=== PATIENT | male | born 1955 ===

== ENCOUNTER 2021-06-06 17:40 | Observation (INO) | payer MEDICARE ==
[2021-06-06] MEDS ORDERED: Lidocaine 1% w/Epinephrine 1:100K 20 ML VIAL ONE (18:34)
[2021-06-06] MEDS ORDERED: Bupivacaine 0.25% HCL 30 ML VIAL ONE (18:34)
[2021-06-06] MEDS ORDERED: Dextrose 50% Abboject 50 ML SYRINGE ONE (18:50)
[2021-06-06] MEDS ORDERED: Fentanyl 100 MCG/2 ML VIAL ONE (19:16)
[2021-06-06] MEDS ORDERED: Lidocaine 1% PF 5 ML VIAL ONE (19:27)
[2021-06-06] MEDS ORDERED: Glycopyrrolate 0.2 MG/ML 5 ML SYRINGE ONE (19:27)
[2021-06-06] MEDS ORDERED: Rocuronium Bromide 10 MG/ML (10ML VIAL) ONE (19:27)
[2021-06-06] MEDS ORDERED: PROPOFOL 200 MG/20 ML VIAL ONE (19:27)
[2021-06-06] MEDS ORDERED: Ondansetron PF 4 MG/2 ML Vial ONE (19:27)
[2021-06-06] MEDS ORDERED: Dexamethasone 4 mg/ml Vial ONE (20:34)
[2021-06-06] MEDS ORDERED: Midazolam HCl 2 mg/2 ml Vial ONE (20:35)
[2021-06-06] MEDS ORDERED: Promethazine HCl 25 MG/ML VIAL IM PRN ×2 (20:50→22:23)
[2021-06-06] MEDS ORDERED: Ondansetron HCl/PF 4 MG/2 ML Vial IVP PRN (20:50)
[2021-06-06] MEDS ORDERED: Morphine Sulfate 2 MG/ML SYRINGE SLOW IVP PRN (20:50)
[2021-06-06] MEDS ORDERED: PACU-Morphine 4MG/ML VIAL SLOW IVP PRN (20:50)
[2021-06-06] MEDS ORDERED: HYDROmorphone 2 MG/ML VIAL SLOW IVP PRN (20:50)
[2021-06-06] MEDS ORDERED: Promethazine HCl 25 MG/ML VIAL IVPB PRN (20:50)
[2021-06-06] MEDS ORDERED: Dextrose 50% Abboject 50 ML SYRINGE SLOW IVP PRN (22:23)
[2021-06-06] MEDS ORDERED: hydrALAZINE 20 MG/ML VIAL SLOW IVP PRN (22:23)
[2021-06-06] MEDS ORDERED: Morphine 4 MG/ML VIAL SLOW IVP PRN ×2 (22:23→23:00)
[2021-06-06] MEDS ORDERED: Ondansetron PF 4 MG/2 ML Vial IVP PRN (22:23)
[2021-06-06] MEDS ORDERED: Dextrose 5% in Water 1,000 ML IV PRN (22:23)
[2021-06-06] MEDS ORDERED: HYDROcodone/Acetaminophen 7.5/325 mg Tablet PO PRN (22:23)
[2021-06-06] MEDS ORDERED: Morphine 2 MG/ML VIAL SLOW IVP PRN (22:23)
[2021-06-06] MEDS ORDERED: Famotidine/PF 20 mg/2ml Vial SLOW IVP SCH ×2 (23:00→23:45)
[2021-06-06 23:09] VITALS: BMI 33.0
[2021-06-06] MEDS ORDERED: Piperacillin/Tazobactam 3.375 GM in Sodium Chloride 0.9% 100 ML IVPB SCH (23:45)
[2021-06-07] MEDS: Lactated Ringer's 1,000 ML IV SCH ×2 (00:36→10:00)
[2021-06-07] MEDS ORDERED: Piperacillin/Tazobactam 3.375 GM in Sodium Chloride 0.9% 100 ML IVPB SCH (06:00)
[2021-06-07] MEDS: HumaLOG 300 UNITS/3 ML VIAL SC PRN ×2 (06:33→11:55)
[2021-06-07 07:09] LABS: #Lymphocytes 0.7 thou/uL (1.20-3.40); #Monocytes 0.2 thou/uL (0.11-0.59); #Neutrophils 7.2 thou/uL (1.40-6.50); %Basophils 0.2 % (0.0-1.0); %Eosinophils 0.1 % (0.0-10.0); %Lymphocytes 9.1 % (21.0-51.0); %Monocytes 2.7 % (0.0-10.0); Hemoglobin 12.4 g/dL (14.0-18.0); Mean Corpuscular HGB CONC 33.6 g/dL (32.0-36.0); Mean Corpuscular Hemoglobin 30.4 pg (27.0-31.0); Mean Corpuscular Volume 90.5 fL (78.0-98.0); Mean Platelet Volume 7.6 fL (7.4-10.4); Platelet Count 229 thou/uL (130-400); RBC Distribution Width 12.2 % (11.5-14.5); Red Blood Cell (RBC) Count 4.07 mill/uL (4.70-6.10); White Blood Cell (WBC) Count 8.2 thou/uL (4.8-10.8)
[2021-06-07 07:33] LABS: Anion Gap 13 mmol/L (10-20); Calcium 9.2 mg/dL (7.8-10.44); Carbon Dioxide 22 mmol/L (23-31); Chloride 106 mmol/L (98-107); Glucose 168 mg/dL (80-115); Potassium 4.1 mmol/L (3.5-5.1); Sodium 137 mmol/L (136-145)
[2021-06-07 07:36] LABS: Calc. Creatinine Clearance 89 mL/min (70-130)
[2021-06-07 07:37] LABS: BUN (Urea Nitrogen) 19 mg/dL (8.4-25.7)
[2021-06-07] MEDS ORDERED: Famotidine 20 MG TAB PO SCH (09:00)
[2021-06-07] MEDS ORDERED: FLU VACC QS2021-22(65YR UP)/PF 240 MCG/0.7 ML SYRINGE IM ONE (09:00)
[2021-06-07] MEDS ORDERED: Famotidine/PF 20 mg/2ml Vial SLOW IVP SCH (09:00)
[2021-06-07 09:24] VITALS: BP 131/78; TEMP 98.1
[2021-06-08] MEDS ORDERED: Famotidine/PF 20 mg/2ml Vial SLOW IVP SCH (09:00)
== END 2021-06-07 12:58 | disposition home or self-care (01) ==
LOC: SDC/OP 17:40 → T4-B 19:44
PROVIDERS: ADMIT Surgery; ATTEND Surgery
PROC: 0DTJ4ZZ Resection of Appendix, Percutaneous Endoscopic Approach (ICD-10-PCS; principal; 2021-06-06)
DX: K35.80 Unspecified acute appendicitis (principal); J18.9 Pneumonia, unspecified organism; E78.5 Hyperlipidemia, unspecified; I12.9 Hypertensive chronic kidney disease with stage 1 through stage 4 chronic kidney disease, or unspecified chronic kidney disease; E11.22 Type 2 diabetes mellitus with diabetic chronic kidney disease; N18.9 Chronic kidney disease, unspecified; Z79.84 Long term (current) use of oral hypoglycemic drugs; Z79.4 Long term (current) use of insulin
CPT/HCPCS: 44970; 80048; 82962 ×2; 85025; 90662; 90732; 93005; G0008; G0009; 36415; 36416; 88304; 90471; 93010; J1100; J1815; J2250; J2270; J2405; J2543; J2704; J3010; J3490; J7120; J7620; S0020; S0028